=== PATIENT | female | born 1970 | race Caucasian/White ===

== ENCOUNTER → 2021-01-27 | Outpatient (CLI) | payer OTHER ==
--- NOTE | 2021-01-27 16:00 | CT ---
EXAMINATION TYPE: CT abdomen pelvis w con DATE OF EXAM: 01/27/2021 COMPARISON: None HISTORY: Generalized pain wtih distension and discolored stool for [address] DLP: 1411.5 mGycm Automated exposure control for dose reduction was used. CONTRAST: CT scan of the abdomen pelvis is performed with IV Contrast, patient injected with 100 mL of Isovue 3 00. FINDINGS- LUNG BASES-basilar subsegmental consolidation most compatible with atelectasis. LIVER/GB- No gross abnormality is appreciated. PANCREAS-atrophy of the pancreas noted. SPLEEN- No gross abnormality is seen. ADRENALS- No gross abnormality is seen. KIDNEYS/BLADDER- no hydronephrosis nephrolithiasis or renal mass. BOWEL- no bowel dilatation. Normal appendix. LYMPH NODES- No greater than 1cm abdominal or pelvic lymph nodes areappreciated. OSSEOUS STRUCTURES-degenerative change of the spine. Facet arthropathy at multiple levels.. OTHER- right ovary is somewhat prominent with a low density 1.4 cm possible cyst recommend pelvic ul trasound. Aorta of normal caliber. No free fluid or free air. IMPRESSION- 1. No acute intra-abdominal process. 2. Mild prominence of the right ovary could be correlated with pelvic ultrasound as clinically warran santosh. 3. Nonspecific gas pattern with no evidence of obstruction
== END | disposition home or self-care (01) ==
LOC: RADCTMAIN 13:01
PROVIDERS: ATTEND Family Medicine
DX: R10.84 Generalized abdominal pain (principal); R14.0 Abdominal distension (gaseous)
CPT/HCPCS: 74177; Q9967

== ENCOUNTER 2021-05-16 19:22 | Emergency (ER) | payer OTHER ==
[2021-05-16 20:22] VITALS: BP 142/68; PULSE 98; RESP 18; TEMP 97.4
[2021-05-16] MEDS ORDERED: LIDOCAINE 1% INJ 10MG/ML (20 ML MDV) SQ ONE (20:36)
[2021-05-16] MEDS ORDERED: DIPH,PERTUS(ACELL)TETVAC-LF 0.5 ML VIAL IM ONE (20:36)
[2021-05-16] MEDS ORDERED: TOPICAL SKIN ADHESIVE 1 EACH AMP TOPICAL ONE (20:44)
--- NOTE | 2021-05-16 21:17 | ED ---
General Adult HPI - General Chief complaint: Wound/Laceration Stated complaint: L hand lac Time Seen by Provider: 05/16/21 20:30 Source: patient, RN notes reviewed, old records reviewed Mode of arrival: ambulatory Limitations: no limitations - History of Present Illness Initial comments: 50-year-old female presenting with left index finger laceration with a utility knife. There was significant bleeding prior to arrival. Patient's tetanus is not up-to-date. Injury was to the very distal tip of the left index finger. No other injury. - Related Data Allergies Allergy/AdvReac Type Severity Reaction Status Date / Time No Known Allergies Allergy Verified 05/16/21 20:14 Review of Systems ROS Statement: Those systems with pertinent positive or pertinent negative responses have been documented in the HPI. ROS Other: All systems not noted in ROS Statement are negative. Past Medical History Past Medical History: No Reported History History of Any Multi-Drug Resistant Organisms: None Reported Past Surgical History: No Surgical Hx Reported Past Psychological History: No Psychological Hx Reported Smoking Status: Former smoker Past Alcohol Use History: Daily Past Drug Use History: None Reported General Exam Limitations: no limitations General appearance: alert, in no apparent distress Head exam: Present: atraumatic, normocephalic Eye exam: Present: normal appearance, PERRL ENT exam: Present: normal exam Neck exam: Present: normal inspection. Absent: tenderness Respiratory exam: Present: normal lung sounds bilaterally. Absent: respiratory distress, wheezes Cardiovascular Exam: Present: regular rate, normal rhythm GI/Abdominal exam: Present: soft. Absent: distended, tenderness Extremities exam: Present: other (Left index finger has a 1 cm laceration at the distal tip. This does not involve the nailbed.) Course Vital Signs 05/16/21 20:08 Temperature 97.4 F L Pulse Rate 98 Respiratory 18 Rate Blood Pressure 142/68 O2 Sat by Pulse 98 Oximetry Procedures - Laceration Laceration #1 Consent Obtained: verbal consent Indication: laceration Site: hand Description: linear Depth: simple, single layer Anesthetic Used: lidocaine 1% Anesthesia Technique: nerve block Amount (mls): 5 Pre-repair: wound explored, irrigated extensively, deep structures intact Size of Sutures: other (Repaired with skin adhesive and Steri-Strips) Patient Tolerated Procedure: well Medical Decision Making - Medical Decision Making Laceration to the left index finger, repaired with skin adhesive and Steri- Strips, hemorrhage control was achieved. Approximation is satisfactory. Patient will monitor for signs of infection and follow-up with her primary care physician. Disposition Clinical Impression: Laceration Disposition: HOME SELF-CARE Condition: Good Instructions (If sedation given, give patient instructions): Laceration (ED), Finger Laceration (ED) Is patient prescribed a controlled substance at d/c from ED?: No Referrals: Radha Thakur DO [Primary Care Provider] - 1-2 days Time of Disposition: 21:17
== END 2021-05-16 21:27 | disposition home or self-care (01) ==
LOC: EC 19:22
DX: S61.211A Laceration without foreign body of left index finger without damage to nail, initial encounter (principal); Z87.891 Personal history of nicotine dependence; W26.0XXA Contact with knife, initial encounter
CPT/HCPCS: 99282; 90471; 12001; 90715; J2001

== ENCOUNTER → 2022-06-21 | Outpatient (CLI) | payer OTHER ==
--- NOTE | 2022-06-21 14:34 | NM ---
EXAMINATION TYPE: NM stress cardiolite complete DATE OF EXAM: 06/21/2022 COMPARISON: NONE HISTORY: Pain TECHNIQUE: After the intravenous administration of 9.5 mCi Tc 99m Sestamibi - Rest images obtained 6 0 minutes post injection. The patient exercised using a REENA protocol and 1 minute prior to peak e xercise was injected with 24.7 mCi Tc 99m Sestamibi - Stress images obtained 35 minutes post injectio n. FINDINGS: Targeted heart rate was achieved during performance of the study. Review of stress and rest SPECT ned ges demonstrates no distinct perfusion abnormality. Gated analysis shows normal wall motion with an estimated left ventricular ejection fraction of 52 %. IMPRESSION: No scintigraphic evidence for reversible ischemia
--- NOTE | 2022-06-22 12:28 | CA ---
Exercise Stress Test Report Name: Lorena Doe Exam Date: 06/21/2022 10:42 Exam Location: [facility] Stress Ht (in): 65 Wt (lb): 210 BSA: 2.02 Ordering Phys: Radha Thakur DO Referring Phys: MIK,, Technologist: Wilian Walker Age: 51 Gender: F : 1970 Procedure CPT: Indications: R07.9 CHEST PAIN ICD-10 Codes: Patient History: Chest pain Shortness of breath and palpitations Medications: Meds past 24 hrs: Pretest Chest Pain: STRESS TEST Sylvain Protocol Exercise Duration (min:sec): 05:[address] Depressions (mm): Angina Score: Rodney Score: Resting HR (bpm): 73 Peak HR (bpm): 147 Resting BP (mmHg): 159 / 72 Peak BP (mmHg): 208 / 72 MPHR: 171 Target HR: 145 % MPHR: 86 METS: 7.1 Total Dose: Peak Dose: Atropine: Double Product: 80558 BP Response: Stress Termination: Reached target heart rate Stress Symptoms: Dyspnea Stress Summary: ECG ANALYSIS Resting ECG: Stress ECG: CONCLUSIONS Baseline heart rate 73 beats a minute, Baseline blood pressure 159/72 mmHg Patient exercised on Sylvain protocol 45 minutes 11 seconds achieving a peak heart rate 147 beats a minute Hypertensive response to exercise. The blood pressure 208/72 mmHg At baseline ECG was normal with normal NV narrow QRS normal ST segments During exercise was no evidence for ischemia Frequent PVCs noted with a left bundle branch block pattern and normal QRS is in the inferior leads Predominantly negative QRS in lead 1 No nonsustained ventricular tachycardia Impression Average exercise capacity with a hypertensive response and shortness of breath on exertion Frequent PVCs without any nonsustained ventricular tachycardia, with exercise No ECG evidence for ischemia Dr. Troy Tate MD (Electronically Signed) Final Date: 22 June 2022 12:27
== END | disposition home or self-care (01) ==
LOC: RADNMMAIN 05-07 07:55
PROVIDERS: ATTEND Family Medicine
DX: R07.9 Chest pain, unspecified (principal)
CPT/HCPCS: 93017; 78452; A9500

== ENCOUNTER 2023-03-27 16:51 | Emergency (ER) | payer OTHER ==
--- NOTE | 2023-03-27 17:11 | ED ---
Fall HPI - General Chief Complaint: Fall Stated Complaint: Fall,Head Injury Time Seen by Provider: 03/27/23 16:51 Source: patient, EMS, RN notes reviewed Mode of arrival: EMS - History of Present Illness Initial Comments: 52-year-old female history of alcohol abuse who apparently fell at home and was brought in by EMS because of a scalp laceration. Patient does not know what she had per paramedics the scalp lacerations between 3-5 inches long on the right parietal scalp region. Minimal blood loss was seen ably she may have had a door jamb. No loss of consciousness reported no nausea vomiting no loss of function to the upper or lower extremities. Patient believes her last tetanus shot was within 5 years. No complaints other than this patient is wondering why she is even here. She did come in with a c-collar on. MD Complaint: fall, other - Related Data Home Medications Medication Instructions Recorded Confirmed Ergocalciferol (Vitamin D2) 1,250 mcg PO WEEKLY 03/27/23 03/27/23 [Drisdol (50,000 Iu)] Phentermine HCl [Adipex-P] 37.5 mg PO DAILY 03/27/23 03/27/23 Venlafaxine HCl ER [Effexor Xr] 37.5 mg PO DAILY 03/27/23 03/27/23 Allergies Allergy/AdvReac Type Severity Reaction Status Date / Time No Known Allergies Allergy Verified 03/27/23 17:52 Review of Systems ROS Statement: Those systems with pertinent positive or pertinent negative responses have been documented in the HPI. ROS Other: All systems not noted in ROS Statement are negative. Past Medical History Past Medical History: No Reported History History of Any Multi-Drug Resistant Organisms: None Reported Past Surgical History: No Surgical Hx Reported Past Psychological History: No Psychological Hx Reported Smoking Status: Former smoker Past Alcohol Use History: Daily Past Drug Use History: None Reported General Exam - General Exam Comments Initial Comments: Physical well-developed well-nourished awake alert oriented 4 female with a Darrel Coma Scale of 15 he does demonstrate the smell of alcohol conjoiners on her breath Limitations: no limitations General appearance: alert, in no apparent distress, appears intoxicated Head exam: Absent: atraumatic Eye exam: Present: normal appearance, PERRL, EOMI. Absent: scleral icterus, conjunctival injection, periorbital swelling ENT exam: Present: normal exam, mucous membranes moist Neck exam: Present: normal inspection, other (C collar in place no started earlier bruits) Respiratory exam: Present: normal lung sounds bilaterally. Absent: respiratory distress, wheezes, rales, rhonchi, stridor Cardiovascular Exam: Present: normal rhythm, tachycardia, normal heart sounds. Absent: systolic murmur, diastolic murmur, rubs, gallop, clicks GI/Abdominal exam: Present: soft, normal bowel sounds. Absent: distended, tenderness, guarding, rebound, rigid Rectal exam: Present: deferred Extremities exam: Present: full ROM, normal capillary refill, other (Superficial abrasion seen over the medial aspect of the right hand no active bleeding no repair indicated also abrasion seen to both knees more swelling right than the left no active bleeding no suture repair indicated. All these abrasions are superficial.). Absent: tenderness, pedal edema, joint swelling, calf tenderness Back exam: Present: normal inspection Neurological exam: Present: alert, oriented X3, CN II-XII intact Psychiatric exam: Present: normal affect, normal mood Skin exam: Present: warm, dry, normal color. Absent: intact, rash Course Vital Signs 03/27/23 16:57 Temperature 97.7 F Pulse Rate 113 H Respiratory 18 Rate Blood Pressure 148/83 O2 Sat by Pulse 97 Oximetry Procedures - Laceration Laceration #1 Consent Obtained: verbal consent Site: scalp Description: flap, clean Depth: simple, single layer Anesthetic Used: lidocaine 1% Anesthesia Technique: local infiltration Pre-repair: wound explored, irrigated extensively, deep structures intact Size of Sutures: other Number of Sutures: 28 Technique: other (Total 28 marilee used to repair the laceration which was 14 cm in length including the scalp and just barely into the forehead at the hairline) Patient Tolerated Procedure: well Additional Comments: (Patient a 14 cm circumlinear flap laceration which was irrigated and cleaned well anesthetized using 1% Xylocaine plain in repaired using a total of 28 marilee without difficulty Medical Decision Making - Medical Decision Making I did discuss findings with the patient and her live-in partner patient did demonstrate evidence of intoxication but she is awake alert oriented 4 she will be discharged home with her partner will keep an eye on her tonight patient does have an appointment to see Dr. Cramer pt. sent in by a medical professional or institution ([facility]NAMARIA Mccartney, [employer] WORKER, urgent care, hospital, or prison...) When possible be specific @ -No Did you speak to anyone other than the patient for history (EMS, parent, family, police, friend...)? What history was obtained from this source @ -EMS, patient's partner Did you review nursing and triage notes (agree or disagree)? Why? @ -I reviewed and agree with nursing and triage notes Were old charts reviewed (outside hosp., previous admission, EMS record, old EKG, old radiological studies, urgent care reports/EKG's, prison records)? Report findings @ -No old charts were reviewed Differential Diagnosis (chest pain, altered mental status, abdominal pain women, abdominal pain men, vaginal bleeding, weakness, fever, dyspnea, syncope, headache, dizziness, GI bleed, back pain, seizure, CVA, palpatations, mental health, musculoskeletal)? @ -Laceration, abrasions, no colic intoxication EKG interpreted by me (3pts min.). @ -As above EKG interpreted by me sinus tachycardia of 110. A 140 QRS duration 88 QT since QTC 355/[address]-T wave changes nonspecific ST configuration X-rays interpreted by me (1pt min.). @ -None done CT interpreted by me (1pt min.). @ -CT brain and C-spine interpreted by me no acute findings other than the soft tissue injury noted clinically U/S interpreted by me (1pt. min.). @ -None done What testing was considered but not performed or refused? (CT, X-rays, U/S, labs)? Why? @ -None What meds were considered but not given or refused? Why? @ -None Did you discuss the management of the patient with other professionals (prof porshaionals i.e. ANAMARIA Mccartney, [employer] WORKER, lab, RT, psych nurse, social scientist, elevator constructor supervisor, teacher, textile technical officer, wrapper caser)? Give summary @ -No Was smoking cessation discussed for >3mins.? @ -No Was critical care preformed (if so, how long)? @ -No Were there social determinants of health that impacted care today? How? (Homelessness, low income, unemployed, alcoholism, drug addiction, transportat ion, low edu. Level, literacy, decrease access to med. care, long-term, rehab)? @ -No Was there de-escalation of care discussed even if they declined (Discuss DNR or withdrawal of care, Hospice)? DNR status @ -No What co-morbidities impacted this encounter? (DM, HTN, Smoking, COPD, CAD, Cancer, CVA, ARF, Chemo, Hep., AIDS, mental health diagnosis, sleep apnea, morbid obesity)? @ -Alcohol abuse Was patient admitted / discharged? Hospital course, mention meds given and route, prescriptions, significant lab abnormalities, going to OR and other pertinent info. @ -hospital course it was discharged home with her partner Undiagnosed new problem with uncertain prognosis? @ -No Drug Therapy requiring intensive monitoring for toxicity (Heparin, Nitro, Insulin, Cardizem)? @ -No Were any procedures done? @ -Laceration repair using marilee #28. 14 cm laceration Diagnosis/symptom? @ -Fall, scalp laceration, multiple abrasions, alcohol intoxication Acute, or Chronic, or Acute on Chronic? @ -Acute Uncomplicated (without systemic symptoms) or Complicated (systemic symptoms)? @ -default Side effects of treatment? @ -No Exacerbation, Progression, or Severe Exacerbation? @ -No Poses a threat to life or bodily function? How? (Chest pain, USA, PR, pneumonia, PE, COPD, DKA, ARF, appy, cholecystitis, CVA, Diverticulitis, Homicidal, Suicidal, threat to staff... and all critical care pts) @ -No - Lab Data Result diagrams: 03/27/23 17:18 03/27/23 17:18 Lab Results 03/27/23 03/27/23 03/27/23 Range/Units 17:18 17:18 17:18 WBC 6.3 (3.8-10.6) k/uL RBC 4.27 (3.80-5.40) m/uL Hgb 13.6 (11.4-16.0) gm/dL Hct 41.9 (34.0-46.0) % MCV 98.2 (80.0-100.0) fL MCH 32.0 (25.0-35.0) pg MCHC 32.6 (31.0-37.0) g/dL RDW 13.6 (11.5-15.5) % Plt Count 225 (150-450) k/uL MPV 7.2 Neutrophils % 59 % Lymphocytes % 31 % Monocytes % 5 % Eosinophils % 2 % Basophils % 0 % Neutrophils # 3.8 (1.3-7.7) k/uL Lymphocytes # 2.0 (1.0-4.8) k/uL Monocytes # 0.3 (0-1.0) k/uL Eosinophils # 0.1 (0-0.7) k/uL Basophils # 0.0 (0-0.2) k/uL PT 9.7 (9.0-12.0) sec INR 0.9 (<1.2) APTT 21.9 L (22.0-30.0) sec Sodium 139 (137-145) mmol/L Potassium 3.8 (3.5-5.1) mmol/L Chloride 105 (98-107) mmol/L Carbon Dioxide 23 (22-30) mmol/L Anion Gap 11 mmol/L BUN 9 (7-17) mg/dL Creatinine 0.67 (0.52-1.04) mg/dL Est GFR (CKD-EPI)AfAm >90 (>60 ml/min/1.73 sqM) Est GFR (CKD-EPI)NonAf >90 (>60 ml/min/1.73 sqM) Glucose 131 H (74-99) mg/dL Calcium 8.6 (8.4-10.2) mg/dL Total Bilirubin 0.6 (0.2-1.3) mg/dL AST 26 (14-36) U/L ALT 22 (4-34) U/L Alkaline Phosphatase 60 (38-126) U/L Troponin I (0.000-0.034) ng/mL Total Protein 7.6 (6.3-8.2) g/dL Albumin 4.1 (3.5-5.0) g/dL Serum Alcohol 309 H* mg/dL Blood Type Blood Type Confirm Blood Type Recheck Bld Type Recheck Status Antibody Screen Spec Expiration Date 03/27/23 03/27/23 03/27/23 Range/Units 17:18 17:18 17:20 WBC (3.8-10.6) k/uL RBC (3.80-5.40) m/uL Hgb (11.4-16.0) gm/dL Hct (34.0-46.0) % MCV (80.0-100.0) fL MCH (25.0-35.0) pg MCHC (31.0-37.0) g/dL RDW (11.5-15.5) % Plt Count (150-450) k/uL MPV Neutrophils % % Lymphocytes % % Monocytes % % Eosinophils % % Basophils % % Neutrophils # (1.3-7.7) k/uL Lymphocytes # (1.0-4.8) k/uL Monocytes # (0-1.0) k/uL Eosinophils # (0-0.7) k/uL Basophils # (0-0.2) k/uL PT (9.0-12.0) sec INR (<1.2) APTT (22.0-30.0) sec Sodium (137-145) mmol/L Potassium (3.5-5.1) mmol/L Chloride (98-107) mmol/L Carbon Dioxide (22-30) mmol/L Anion Gap mmol/L BUN (7-17) mg/dL Creatinine (0.52-1.04) mg/dL Est GFR (CKD-EPI)AfAm (>60 ml/min/1.73 sqM) Est GFR (CKD-EPI)NonAf (>60 ml/min/1.73 sqM) Glucose (74-99) mg/dL Calcium (8.4-10.2) mg/dL Total Bilirubin (0.2-1.3) mg/dL AST (14-36) U/L ALT (4-34) U/L Alkaline Phosphatase (38-126) U/L Troponin I <0.012 (0.000-0.034) ng/mL Total Protein (6.3-8.2) g/dL Albumin (3.5-5.0) g/dL Serum Alcohol mg/dL Blood Type A Positive Blood Type Confirm A Positive Blood Type Recheck No Previous Record Bld Type Recheck Status CABO Indicated Antibody Screen NEGATIVE Spec Expiration Date 03/30/20232317 - EKG Data -: EKG Interpreted by Me EKG Comments: EKG interpreted by me sinus tachycardia 110 CT interval 145 QRS duration 80 QT since QTC 355/[address] configuration - Radiology Data Interpreted by me: CT head neck evaluated by me. Patient shows no evidence of acute fractures or s ubluxation no evidence of internal bleeding. Fracture seen Disposition Clinical Impression: Fall, Alcohol intoxication, Multiple abrasions Disposition: HOME SELF-CARE Condition: Good Instructions (If sedation given, give patient instructions): Fall Prevention (ED), Laceration (ED), Alcohol Intoxication (ED), Alcohol Dependence (ED), Abrasion (ED) Is patient prescribed a controlled substance at d/c from ED?: No Referrals: Radha Thakur DO [Primary Care Provider] - 1-2 days Decision Date: 03/27/23 Decision Time: 20:46
[2023-03-27 17:31] LABS: Basophils % (A) 0 %; Eosinophils # (A) 0.1 k/uL (0-0.7); Eosinophils % (A) 2 %; HCT 41.9 % (34.0-46.0); HGB 13.6 gm/dL (11.4-16.0); Lymphocytes % (A) 31 %; MCHC 32.6 g/dL (31.0-37.0); MCV 98.2 fL (80.0-100.0); Mean Platelet Volume 7.2; Monocytes # (A) 0.3 k/uL (0-1.0); Monocytes % (A) 5 %; Neutrophils # (A) 3.8 k/uL (1.3-7.7); Neutrophils % (A) 59 %; Platelet Count 225 k/uL (150-450); RBC 4.27 m/uL (3.80-5.40); RDW 13.6 % (11.5-15.5); WBC 6.3 k/uL (3.8-10.6)
[2023-03-27 17:40] LABS: ALT 22 U/L (4-34); AST 26 U/L (14-36); African American GFR (CKD) >90 (>60 ml/min/1.73 sqM); Albumin 4.1 g/dL (3.5-5.0); Alkaline Phosphatase 60 U/L (38-126); Anion Gap 11 mmol/L; Blood Urea Nitrogen 9 mg/dL (7-17); Calcium 8.6 mg/dL (8.4-10.2); Carbon Dioxide 23 mmol/L (22-30); Chloride 105 mmol/L (98-107); Glucose 131 mg/dL (74-99); Non-African American GFR(CKD) >90 (>60 ml/min/1.73 sqM); Potassium 3.8 mmol/L (3.5-5.1); Sodium 139 mmol/L (137-145); Total Bilirubin 0.6 mg/dL (0.2-1.3); Total Protein 7.6 g/dL (6.3-8.2)
[2023-03-27 17:50] LABS: INR 0.9 (<1.2); Partial Thromboplastin Time 21.9 sec (22.0-30.0); Prothrombin Time 9.7 sec (9.0-12.0)
[2023-03-27 17:59] LABS: Alcohol 309 mg/dL
[2023-03-27] MEDS ORDERED: LIDOCAINE 1% INJ 10MG/ML (20 ML MDV) SQ ONE (19:32)
--- NOTE | 2023-03-27 19:49 | CT ---
EXAMINATION TYPE: CT brain melissa aguiar DATE OF EXAM: 03/27/2023 COMPARISON: None HISTORY: head injury after fall CT DLP: 1714.7 mGycm, Automated exposure control for dose reduction was used. CONTRAST: Patient injected with 0 mL of Isovue 300. CT of the brain is performed utilizing 3 mm thick sections through the posterior fossa and 3 mm thick sections through the remaining calvarium. Study is performed within 24 hours of arrival to the hospital. No abnormal hyperdensity is present to suggest an acute intracranial hemorrhage. No mass lesion is evident. No acute infarcts are evident. Soft tissue swelling is over the right frontal and temporal regions. No underlying fracture is eviden t. Ventricles and sulci are appropriate for the patient age. Paranasal sinuses and mastoid air cells within the [id number] are clear. IMPRESSIONS: 1. No acute intracranial process. Follow-up MRI can be performed as clinically indicated. 2. Superficial soft tissue swelling right frontal and temporal regions. CT cervical spine. COMPARISON: None CT of the cervical spine is performed in the axial plane at 2 mm thick sections. Reconstructed image s in the coronal, and sagittal plane are reviewed on the computer. No acute fractures are evident. Vertebral body alignment is normal. Endplate changes are present C5-6 C6-7 with anterior and posterior vertebral body spurring. No spinal canal stenosis is present. Vertebral body heights are preserved. No spinal canal stenosis is evident. No neural foraminal stenosis is evident. Lung apices within the field of view are normal. IMPRESSION: 1. Mild degenerative disc changes C5-6 C6-7 without spinal canal stenosis. 2. No acute osseous abnormality cervical spine
--- NOTE | 2023-03-27 22:01 | XR ---
EXAMINATION TYPE: XR chest 1V portable DATE OF EXAM: 03/27/2023 COMPARISON: None INDICATION: Fall, pain trauma TECHNIQUE: Single frontal view of the chest is obtained. FINDINGS: The heart size is normal. The pulmonary vasculature is normal. The lungs are clear. Mediastinum is normal. No displaced rib fractures are evident. No pneumothorax is evident. IMPRESSION: 1. No acute pulmonary process. 2. No acute posttraumatic changes
--- NOTE | 2023-03-27 22:03 | XR ---
EXAMINATION TYPE: XR pelvis AP view DATE OF EXAM: 03/27/2023 COMPARISON: HISTORY: Fall trauma pain TECHNIQUE: AP pelvis FINDINGS: Femoral heads articulate with the acetabulum. Joint spaces are preserved. Pubic symphysis a nd sacroiliac joints are normal. No acute fractures or dislocations are evident. Normal bowel gas is present. IMPRESSION: 1. Normal AP pelvis
[2023-03-28 15:45] VITALS: BP 142/81; PULSE 94; RESP 18; TEMP 97.7
== END 2023-03-27 21:15 | disposition home or self-care (01) ==
LOC: EC 16:51
DX: S01.01XA Laceration without foreign body of scalp, initial encounter (principal); S60.511A Abrasion of right hand, initial encounter; S80.212A Abrasion, left knee, initial encounter; S80.211A Abrasion, right knee, initial encounter; F10.129 Alcohol abuse with intoxication, unspecified; R00.0 Tachycardia, unspecified; Z87.891 Personal history of nicotine dependence; Z79.899 Other long term (current) drug therapy; Y90.8 Blood alcohol level of 240 mg/100 ml or more; W19.XXXA Unspecified fall, initial encounter; Y92.009 Unspecified place in unspecified non-institutional (private) residence as the place of occurrence of the external cause
CPT/HCPCS: 93005; 86900; 86901; 80053; 84484; 85025; 85610; 85730; 86850; 80320; 72170; 71045; 72125; 70450; 99285; 12005; J2001; 36415

== ENCOUNTER → 2023-10-31 | Outpatient (CLI) | payer OTHER ==
--- NOTE | 2023-10-31 13:25 | CT ---
EXAMINATION TYPE: CT abdomen pelvis w con DATE OF EXAM: 10/31/2023 COMPARISON: 01/27/2021 INDICATION: abdominal distension weight gain 60 lbs over short period of time DLP: 2056 mGycm, Automated exposure control for dose reduction was used. CONTRAST: 100 mL of Isovue 300. Study performed with Oral Contrast TECHNIQUE: Axial images were obtained from above the diaphragm to the pubic rami in the axial plane a t 5 mm thick sections. Reconstructed images are reviewed on the computer in the coronal plane. FINDINGS: Limited CT sections are obtained the lung bases. The lung bases are clear. CT ABDOMEN: Liver: Normal Spleen: Normal Pancreas: There is fatty infiltration of the liver. Adrenal glands: The adrenal glands are normal. Gallbladder: Normal Kidneys: No masses are evident. No hydronephrosis is present. No cysts are present. Delayed images were obtained through the kidneys, which remain unremarkable. Aorta: Vascular calcification is within the aorta. Inferior vena cava: Normal. CT PELVIS: Loops of bowel within the abdomen and pelvis are normal. There are loops of bowel which are incom pletely distended or lack oral contrast limiting their evaluation. Appendix: Not identified. No dilated tubular structures or inflammatory change is evident. Urinary bladder: Normal. Genitourinary structures: Uterus is normal. Adnexa are normal. Small follicles are not excluded Osseous structures: No suspicious lytic or sclerotic lesions. IMPRESSION: 1. Mild fatty infiltration of the liver.
== END | disposition home or self-care (01) ==
LOC: RADCTMAIN 10:49
PROVIDERS: ATTEND Family Medicine
DX: K76.0 Fatty (change of) liver, not elsewhere classified (principal); R14.0 Abdominal distension (gaseous); R63.5 Abnormal weight gain
CPT/HCPCS: 74177; Q9967

== ENCOUNTER 2024-11-04 06:16 | Emergency (ER) | payer OTHER ==
--- NOTE | 2024-11-04 06:42 | ED ---
General Adult HPI - General Source: patient Mode of arrival: wheelchair Limitations: no limitations <Chris Kelly - Last Filed: 11/04/24 06:42> - General Source: RN notes reviewed <Zach Burton - Last Filed: 11/04/24 08:32> - General Chief complaint: Fall Stated complaint: Fall Time Seen by Provider: 11/04/24 06:25 - History of Present Illness Initial comments: Dictation was produced using [employer] dictation software. please excuse any grammatical, word or spelling errors. Chief Complaint: 53-year-old female presents with abdominal pain History of Present Illness: Patient is a 53-year-old alcoholic female presents to the emergency department with abdominal pain states that yesterday she was drinking when she lost her balance fell forward. Denies any head trauma. States that since the fall she has been having abdominal pain. Patient states that the pain is worse whenever she takes deep breath. States that her abdomen feels much more distended over the last several days. Denies any fever, chills or night sweats she is never been diagnosed with cirrhosis or ascites. The ROS documented in this emergency department record has been reviewed and confirmed by me. Those systems with pertinent positive or negative responses have been documented in the HPI. All other systems are other negative and/or noncontributory. (Chris Kelly) - Related Data Home Medications Medication Instructions Recorded Confirmed Ergocalciferol (Vitamin D2) 1,250 mcg PO WEEKLY 03/27/23 03/27/23 [Drisdol (50,000 Iu)] Phentermine HCl [Adipex-P] 37.5 mg PO DAILY 03/27/23 03/27/23 Venlafaxine HCl ER [Effexor Xr] 37.5 mg PO DAILY 03/27/23 03/27/23 Allergies Allergy/AdvReac Type Severity Reaction Status Date / Time No Known Allergies Allergy Verified 11/04/24 06:20 Review of Systems ROS Other: All systems not noted in ROS Statement are negative. <Chris Kelly - Last Filed: 11/04/24 06:42> ROS Other: All systems not noted in ROS Statement are negative. <Zach Burton - Last Filed: 11/04/24 08:32> ROS Statement: Those systems with pertinent positive or pertinent negative responses have been documented in the HPI. Past Medical History Past Medical History: No Reported History History of Any Multi-Drug Resistant Organisms: None Reported Past Surgical History: No Surgical Hx Reported Past Psychological History: No Psychological Hx Reported Smoking Status: Former smoker Past Alcohol Use History: Daily Past Drug Use History: None Reported <Chris Kelly - Last Filed: 11/04/24 06:42> General Exam Limitations: no limitations <Chris Kelly - Last Filed: 11/04/24 06:42> General appearance: alert, in no apparent distress Head exam: Present: atraumatic, normocephalic, normal inspection Eye exam: Present: normal appearance, PERRL, EOMI. Absent: scleral icterus, conjunctival injection, periorbital swelling Neck exam: Present: normal inspection, full ROM. Absent: tenderness, meningismus, lymphadenopathy Respiratory exam: Present: normal lung sounds bilaterally, chest wall tenderness. Absent: respiratory distress, wheezes, rales, rhonchi, stridor Cardiovascular Exam: Present: regular rate, normal rhythm, normal heart sounds. Absent: systolic murmur, diastolic murmur, rubs, gallop, clicks GI/Abdominal exam: Present: soft, normal bowel sounds. Absent: distended, tenderness, guarding, rebound, rigid Neurological exam: Present: alert, oriented X3, CN II-XII intact, reflexes normal. Absent: motor sensory deficit Skin exam: Present: warm, dry, intact, normal color. Absent: rash <Zach Burton - Last Filed: 11/04/24 08:32> - General Exam Comments Initial Comments: PHYSICAL EXAM: General Impression: Alert and oriented x3, not in acute distress HEENT: Normocephalic atraumatic, extra-ocular movements intact, pupils equal and reactive to light bilaterally, mucous membranes moist. Cardiovascular: Heart regular rate and rhythm Chest: Able to complete full sentences, no retractions, no tachypnea Abdomen: Distended abdomen with positive fluid wave Musculoskeletal: Pulses present and equal in all extremities, no peripheral edema Motor: no focal deficits noted Neurological: CN II-XII grossly intact, no focal motor or sensory deficits noted Skin: Intact with no visualized rashes Psych: Normal affect and mood (Chris Kelly) Course Vital Signs 11/04/24 11/04/24 06:17 08:17 Temperature 98.2 F 98.1 F Pulse Rate 95 83 Respiratory 18 20 Rate Blood Pressure 165/83 155/83 O2 Sat by Pulse 98 97 Oximetry Medical Decision Making - Lab Data Result diagrams: 11/04/24 06:55 11/04/24 06:55 <Zach Burton M - Last Filed: 11/04/24 08:32> - Medical Decision Making Was pt. sent in by a medical professional or institution (, PA, PAINT PROCESS ENGINEER, urgent care, hospital, or halfway...) When possible be specific @ -No Did you speak to anyone other than the patient for history (EMS, parent, family, police, friend...)? What history was obtained from this source @ -No Did you review nursing and triage notes (agree or disagree)? Why? @ -I reviewed and agree with nursing and triage notes Were old charts reviewed (outside hosp., previous admission, EMS record, old EKG, old radiological studies, urgent care reports/EKG's, halfway records)? Report findings @ -No old charts were reviewed Differential Diagnosis (chest pain, altered mental status, abdominal pain women, abdominal pain men, vaginal bleeding, weakness, fever, dyspnea, syncope, headache, dizziness, GI bleed, back pain, seizure, CVA, palpatations, mental health, musculoskeletal)? @ -Rib fracture, rib contusion differential Abdominal Pain Women: Appendicitis, Cholecystitis, diverticulosis, ischemic bowel, pancreatitis, hepatitis, UTI, gastroenteritis, AAA, incarcerated hernia, bowel obstruction, constipation, inflammatory bowel, hepatitis, peptic ulcer disease, splenic infarction, perforated viscus, vulvitis, ovarian torsion, PID, kidney stone, placenta abruption, this is not meant to be an all-inclusive list EKG interpreted by me (3pts min.). @ -None X-rays interpreted by me (1pt min.). @ -None done CT interpreted by me (1pt min.). @ -CT of the abdomen pelvis showing no acute lower rib fracture, no acute intra- abdominal process. CT brain shows no acute intracranial hemorrhage U/S interpreted by me (1pt. min.). @ -None done What testing was considered but not performed or refused? (CT, X-rays, U/S, labs)? Why? @ -None What meds were considered but not given or refused? Why? @ -None Did you discuss the management of the patient with other professionals (professionals i.e. Dr., PA, PAINT PROCESS ENGINEER, lab, RT, psych nurse, aids social worker, merchandise presentation associate, teacher, air force senior officer, briefcase sewer)? Give summary @ -No Was smoking cessation discussed for >3mins.? @ -No Was critical care preformed (if so, how long)? @ -No Were there social determinants of health that impacted care today? How? (Homelessness, low income, unemployed, alcoholism, drug addiction, transportation, low edu. Level, literacy, decrease access to med. care, usp, rehab)? @ -No Was there de-escalation of care discussed even if they declined (Discuss DNR or withdrawal of care, Hospice)? DNR status @ -No What co-morbidities impacted this encounter? (DM, HTN, Smoking, COPD, CAD, Cancer, CVA, ARF, Chemo, Hep., AIDS, mental health diagnosis, sleep apnea, morbid obesity)? @ -[Alcohol abuse Was patient admitted / discharged? Hospital course, mention meds given and route, prescriptions, significant lab abnormalities, going to OR and other pertinent info. @ -Discharge patient has a rib contusion, there is no evidence of intra- abdominal process, rib fractures fatty liver disease. Patient advised to follow-up with alcohol rehab as she is a daily drinker. Patient will be discharged in stable condition return for as discussed. Undiagnosed new problem with uncertain prognosis? @ -No Drug Therapy requiring intensive monitoring for toxicity (Heparin, Nitro, Insulin, Cardizem)? @ -No Were any procedures done? @ -No Diagnosis/symptom? @ -Abdominal pain, rib contusion, alcohol abuse Acute, or Chronic, or Acute on Chronic? @ -Acute Uncomplicated (without systemic symptoms) or Complicated (systemic symptoms)? @ -Uncomplicated Side effects of treatment? @ -No Exacerbation, Progression, or Severe Exacerbation? @ -No Poses a threat to life or bodily function? How? (Chest pain, [place], [place], pneumonia, PE, COPD, DKA, ARF, appy, cholecystitis, CVA, Diverticulitis, Homicidal, Suicidal, threat to staff... and all critical care pts) @ -No (Zach Burton) - Lab Data Lab Results 0411/04/24 11/04/24 Range/Units 06:55 06:55 06:55 WBC 8.18 (4.50-10.00) 10*3/uL RBC 4.04 L (4.10-5.20) 10*6/uL Hgb 13.2 (12.0-15.0) g/dL Hct 39.4 (37.2-46.3) % MCV 97.5 H (80.0-97.0) fL MCH 32.7 H (27.0-32.0) pg MCHC 33.5 (32.0-37.0) g/dL Plt Count 220 (140-440) 10*3/uL MPV 9.6 (9.5-12.2) fL Immature Gran % (Auto) 0.2 % Neutrophils % 64.2 % Lymphocytes % 26.8 % Monocytes % 7.6 % Eosinophils % 1.0 % Basophils % 0.2 % Immature Gran # 0.02 (0.00-0.04) 10*3/uL Neutrophils # 5.25 (1.80-7.70) 10*3/uL Lymphocytes # 2.19 (0.90-5.00) 10*3/uL Monocytes # 0.62 (0.20-1.00) 10*3/uL Eosinophils # 0.08 (0.04-0.35) 10*3/uL Basophils # 0.02 (0.00-0.10) 10*3/uL PT 10.1 (10.0-12.5) sec INR 0.9 (<1.2) APTT 20.1 L (22.0-30.0) sec Sodium 142 (137-145) mmol/L Potassium 4.2 (3.5-5.1) mmol/L Chloride 104 (98-107) mmol/L Carbon Dioxide 23 (22-30) mmol/L Anion Gap 15 mmol/L BUN 23 H (7-17) mg/dL Creatinine 0.56 (0.52-1.04) mg/dL Est GFR (CKD-EPI)AfAm >90 (>60 ml/min/1.73 sqM) Est GFR (CKD-EPI)NonAf >90 (>60 ml/min/1.73 sqM) Glucose 130 H (74-99) mg/dL Calcium 9.3 (8.4-10.2) mg/dL Total Bilirubin 0.5 (0.2-1.3) mg/dL AST 42 H (14-36) U/L ALT 26 (4-34) U/L Alkaline Phosphatase 62 (38-126) U/L Total Protein 7.5 (6.3-8.2) g/dL Albumin 4.3 (3.5-5.0) g/dL Serum Alcohol 50 mg/dL Disposition <Chris Kelly - Last Filed: 11/04/24 06:42> Is patient prescribed a controlled substance at d/c from ED?: No Time of Disposition: 08:32 <Zach Burton - Last Filed: 11/04/24 08:32> Clinical Impression: Fall, Contusion of rib on right side Disposition: HOME SELF-CARE Condition: Stable Instructions (If sedation given, give patient instructions): Rib Contusion (ED) Additional Instructions: Please return to the Emergency Department if symptoms worsen or any other concerns. Referrals: Radha Thakur DO [Primary Care Provider] - 1-2 days
[2024-11-04] MEDS: ONDANSETRON 4 MG/2 ML VIAL IVP STA (07:01)
[2024-11-04 07:15] LABS: Basophils # (A) 0.02 10*3/uL (0.00-0.10); Basophils % (A) 0.2 %; Eosinophils # (A) 0.08 10*3/uL (0.04-0.35); HCT 39.4 % (37.2-46.3); HGB 13.2 g/dL (12.0-15.0); Lymphocytes # (A) 2.19 10*3/uL (0.90-5.00); Lymphocytes % (A) 26.8 %; MCH 32.7 pg (27.0-32.0); MCHC 33.5 g/dL (32.0-37.0); MCV 97.5 fL (80.0-97.0); Mean Platelet Volume 9.6 fL (9.5-12.2); Monocytes # (A) 0.62 10*3/uL (0.20-1.00); Monocytes % (A) 7.6 %; Neutrophils # (A) 5.25 10*3/uL (1.80-7.70); Neutrophils % (A) 64.2 %; Platelet Count 220 10*3/uL (140-440); RBC 4.04 10*6/uL (4.10-5.20); RDW 13.4 % (11.5-14.5); WBC 8.18 10*3/uL (4.50-10.00)
[2024-11-04 07:19] LABS: ALT 26 U/L (4-34); AST 42 U/L (14-36); African American GFR (CKD) >90 (>60 ml/min/1.73 sqM); Albumin 4.3 g/dL (3.5-5.0); Alcohol 50 mg/dL; Alkaline Phosphatase 62 U/L (38-126); Anion Gap 15 mmol/L; Blood Urea Nitrogen 23 mg/dL (7-17); Calcium 9.3 mg/dL (8.4-10.2); Carbon Dioxide 23 mmol/L (22-30); Chloride 104 mmol/L (98-107); Glucose 130 mg/dL (74-99); Non-African American GFR(CKD) >90 (>60 ml/min/1.73 sqM); Potassium 4.2 mmol/L (3.5-5.1); Sodium 142 mmol/L (137-145); Total Bilirubin 0.5 mg/dL (0.2-1.3); Total Protein 7.5 g/dL (6.3-8.2)
--- NOTE | 2024-11-04 07:34 | CT ---
EXAMINATION TYPE: CT brain wo con DATE OF EXAM: 11/04/2024 7:29 AM COMPARISON: 03/27/2023 CLINICAL INDICATION: Female, 53 years old with history of distended abdomen, FALL TECHNIQUE: CT of the brain is performed utilizing 3 mm thick sections through the posterior fossa and 3 mm thick sections through the remaining calvarium. Study is performed within 24 hours of arrival to the hospital. Contrast used: mL of , (none if empty) CT DLP: 1127.6 mGycm, Automated exposure control for dose reduction was used. FINDINGS: No abnormal hyperdensity is present to suggest an acute intracranial hemorrhage. No mass lesion is evident. No acute infarcts are evident. Ventricles and sulci are appropriate for the patient age. Paranasal sinuses and mastoid air cells within the [id number] are clear. IMPRESSION: 1. No acute intracranial process. Follow up MRI can be performed as clinically indicated. [facility], , 11/04/2024 7:32 AM
[2024-11-04 07:50] LABS: INR 0.9 (<1.2); Prothrombin Time 10.1 sec (10.0-12.5)
--- NOTE | 2024-11-04 07:53 | CT ---
EXAMINATION TYPE: CT abdomen pelvis w con DATE OF EXAM: 11/04/2024 7:40 AM COMPARISON: 10/31/2023 CLINICAL INDICATION: Female, 53 years old with history of distended abdomen, RIGHT LOWER RIB PAIN TECHNIQUE: Axial images were obtained from above the diaphragm to the pubic rami in the axial plane a t 5 mm thick sections. Reconstructed images are reviewed on the computer in the coronal plane. CONTRAST: 100 mL of Isovue 300. Study performed without Oral Contrast DLP: 2930.1 mGycm, Automated exposure control for dose reduction was used. FINDINGS: Limited CT sections are obtained the lung bases. The lung bases are clear. CT ABDOMEN: Liver: There is some minimal diffuse fatty infiltration of the liver. Spleen: Normal Pancreas: Fatty infiltration through the pancreas is present. Adrenal glands: The adrenal glands are normal. Gallbladder: Normal Kidneys: No masses are evident. No hydronephrosis is present. No cysts are present. Delayed images were obtained through the kidneys, which remain unremarkable. Aorta: Vascular calcification is within the aorta. Inferior vena cava: Normal. CT PELVIS: Loops of bowel within the abdomen and pelvis are normal. This study is without contrast limiting pathology evaluation. Appendix: Normal as visualized. Urinary bladder: Normal. Genitourinary structures: Uterus and adnexa appear normal. Osseous structures: No suspicious lytic or sclerotic lesions. No rib fractures evident within the fie ld-of-view. Vertebral body heights are preserved. Vacuum disc phenomenon and loss of disc height is p resent L2-3 L3-4 IMPRESSION: 1. No acute posttraumatic changes CT abdomen and pelvis. 2. Mild fatty infiltration of liver [facility], , 11/04/2024 7:51 AM
[2024-11-04 07:57] LABS: Partial Thromboplastin Time 20.1 sec (22.0-30.0)
[2024-11-04 08:19] VITALS: RESP 20
[2024-11-04] MEDS: ACET/COD 300 MG/30 MG STARTER PACK 6 TAB BTL PO STA (08:38)
[2024-11-04 08:42] VITALS: BP 146/80; PULSE 80; TEMP 98
== END 2024-11-04 08:43 | disposition home or self-care (01) ==
LOC: EC 06:16
DX: S20.211A Contusion of right front wall of thorax, initial encounter (principal); F10.129 Alcohol abuse with intoxication, unspecified; Z87.891 Personal history of nicotine dependence; W01.0XXA Fall on same level from slipping, tripping and stumbling without subsequent striking against object, initial encounter; Y90.2 Blood alcohol level of 40-59 mg/100 ml
CPT/HCPCS: 36415; 80053; 85025; 85610; 85730; 80320; 70450; 74177; 99284; 96374; J2405; Q9967